=== PATIENT | male | born 2000 | race Caucasian/White ===

== ENCOUNTER 2021-02-10 05:15 | Emergency (ER) | payer OTHER ==
[~2021-02-10] VITALS: Ht 177.8 cm; Wt 75.9 kg
--- NOTE | 2021-02-10 05:23 | PHYS DOC ---
Adult General Chief Complaint Chief Complaint: NAUSEA/VOMITING/DIARRHEA HPI HPI Patient is a 20yo healthy male complaining of n/v/d. Onset was evening prior. Patient reports experienced similar symptoms that have since resolved. He developed nausea and has had ~12 episodes of non-bloody non-bilious emesis and ~12 episodes of looser stools than usual. No sick contacts or recent travel but admits reheating frozen chicken using an air fryer the day prior. No fever, chills, dizziness, CP, SHOB, dysuria. 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 See HPI for pertinent positives and negative responses, other jennings all other systems are negative, non-pertinent or non-contributory (HASEEB SAUCEDA DO) Physical Exam Physical Exam Constitutional: Well developed, well nourished, no acute distress, non-toxic appearance. HENT: Normocephalic, atraumatic, bilateral external ears normal, oropharynx moist, no oral exudates, nose normal. Eyes: PERRLA, EOMI, conjunctiva normal, no discharge. Neck: Normal range of motion, no tenderness, supple, no stridor. Cardiovascular: Heart rate regular, sinus rhythm, no murmurs rubs or gallops Lungs & Thorax: Bilateral breath sounds clear to auscultation Abdomen: Bowel sounds normal, soft, no tenderness, no masses, no pulsatile masses. Nonsurgical abdomen, no peritoneal signs Skin: Warm, dry, no erythema, no rash. Back: No tenderness, no CVA tenderness. Extremities: No tenderness, no cyanosis, no clubbing, ROM intact, no edema. Neurologic: Alert and oriented X 3, grossly normal motor & sensory function, no focal deficits noted. Psychologic: Affect normal, judgement normal, mood normal. (HASEEB SAUCEDA DO) Current Patient Data Vital Signs Vital Signs Date Time Temp Pulse Resp B/P (MAP) Pulse Ox O2 Delivery O2 Flow Rate FiO2 02/10/21 05:37 97.2 125 18 117/74 (88) 99 Room Air Vital Signs Date Time Temp Pulse Resp B/P (MAP) Pulse Ox O2 Delivery O2 Flow Rate FiO2 02/10/21 06:41 94 18 123/94 (104) 98 Room Air 02/10/21 05:37 97.2 (HASEEB SAUCEDA DO) EKG EKG EKG ordered and interpreted by myself at 0544 hrs. as sinus rhythm at 116 bpm, unremarkable intervals, no axis deviation, no acute ischemic findings, no STEMI (HASEEB SAUCEDA DO) Radiology/Procedures Radiology/Procedures [] (HASEEB SAUCEDA DO) Heart Score C/O Chest Pain: No Risk Factors: Risk Factors: DM, Current or recent (<one month) smoker, HTN, HLP, family history of CAD, obesity. Risk Scores: Risk Factors: DM, Current or recent (<one month) smoker, HTN, HLP, family history of CAD, obesity. (HASEEB SAUCEDA DO) C/O Chest Pain: No (JANET BALLARD DO) Course & Med Decision Making Course & Med Decision Making Tachycardic otherwise hemodynamically stable. HPI and PE consistent for dehydration 2/2 likely enteritis. ED workup started and 4mg Zofran and 1L IV NS administered Comprehensive sign out given to oncoming physician at time of my shift's end. Please defer to Dr. Ballard' notes for more detail (HASEEB SAUCEDA DO) Course & Med Decision Making 20-year-old male presents to the ED with sudden onset nausea, nonbloody nonbilious vomiting and loose watery diarrhea within 24 hours of his girlfriend who he lives with had similar symptoms, suspect viral process > infectious bacterial diarrhea (no recent abx) vs surgical abdomen, etc. Patient states he had old frozen chicken from [employer] that he air fried, symptoms started shortly after. No associated abdominal pain, fever, back pain, urinary complaints, bloody stools or bloody emesis. Patient presented with tachycardia -improved with 1 L NS bolus, heart rate in the 80s. Labs with no electrolyte abnormality, normal lipase, negative alcohol. Patient well-appearing with no further nausea and requests to go home. Patient reports he has a history of gastritis but no formal GI evaluation. Will discharge home with strict ED return precautions were given for recurrent dehydration, abdominal or back pain or fever. Encouraged urgent outpatient follow-up with PMD and GI for definitive management of gastritis. Life-threatening processes were considered but are low suspicion at this time, given history, physical exam and ED workup. Pt was educated on all prescription medications and adverse effects. All patient's questions were answered and pt was stable at time of discharge. Life/limb-threatening differential includes but is not limited to, acute coronary syndrome/myocardial infarction, Boerhaave's, DKA, intracranial hemorrhage, ischemic bowel, meningitis, sepsis, surgical abdomen (AAA), toxidrome (drug over/overdose/carbon monoxide, etc), ovarian/testicular torsion, trauma, or infection/sepsis. I spoken with the patient and her caregivers. I explained the patient's condition, diagnoses and treatment plan based on the information available to me at this time. I have answered the patient and her caregiver's questions and addressed any concerns. The patient and her caregivers have a good understanding of patient's diagnosis, condition and treatment plan as can be expected at this point. Vital signs have been stable. Patient's condition is stable and appropriate for discharge from the emergency department. Patient will pursue further outpatient evaluation with primary care physician or other designated or consulting physician as outlined in the discharge instructions. The patient and/or caregivers are agreeable to this plan of care and follow-up instructions have been explained in detail. The patient and/or caregivers have received these instructions in written form and have expressed an understanding of the discharge instructions. The patient and/or caregivers are aware that any significant change of condition or worsening of symptoms should prompt immediate return to this or the closest emergency department or call to 911. (JANET BALLARD DO) Dragon Disclaimer Dragon Disclaimer This electronic medical record was generated, in whole or in part, using a voice recognition dictation system. (HASEEB SAUCEDA DO) Departure Departure: Impression: Primary Impression: Nausea, vomiting, and diarrhea Disposition: 01 DC HOME SELF CARE/HOMELESS Condition: IMPROVED Referrals: PCP,UNKNOWN (PCP) with your pcp in 3 days for re-evaluation OR FOLLOW UP WITH FAMILY MEDICINE: Family Medicine Address: [address] [place] [address], [address] [address] Patient Instructions: Nausea and Vomiting Additional Instructions: You were seen for nausea, vomit, and diarrhea. You most likely have a viral illness which should resolve in the next few days to a week. Please call your primary care physician first thing Friday morning to review your ER visit and discuss potential need for outpatient follow-up and repeat evaluation. You should return to the ED if you develop abdominal pain, fever > 100.3, black/bloody stools, black/bloody vomiting, cannot keep water down, or any other new or concerning symptoms. FOLLOW UP WITH GASTROENTEROLOGY: if symptoms persist/evaluation for gastritis [facility] Address: [address] [place] [id number] EMERGENCY DEPARTMENT GENERAL DISCHARGE INSTRUCTIONS Thank you for coming to [facility] (ED) today and trusting us with you care. We trust that you had a positivie experience in our Emergency Department. If you wish to speak to the department management, you may call the director at [phone]. YOUR FOLLOW UP INSTRUCTIONS ARE FOLLOWS: 1. Do you have a private Doctor? If you do not have a private doctor, please ask for a resource list of physicians or clinics that may be able to assist you with follow up care. 2. The Emergency Physician has interpreted your x-rays. The X-Ray specialist will also review them. If there is a change in the findings, you will be notified in 48 hours when at all possible. 3. A lab test or culture has been done, your results will be reviewed and you will be notified if you need a change in treatment. ADDITIONAL INSTRUCTIONS AND INFORMATION: 1. Your care today has been supervised by a physician who is specially trained in emergency care. Many problems require more than one evaluation for a complete diagnosis and treatment. We recommend that you schedule your follow up appointment as recommended to ensure complete treatment of you illness or injury. If you are unable to obtain follow up care and continue to have a problem, or if your condition worsens, we recommend that you return to the ED. 2. We are not able to safely determine your condition over the phone nor are we able to give sound medical advice over the phone. For these safety reasons, if you call for medical advice we will ask you to come to the ED for further evaluation. 3. If you have any questions regarding these discharge instructions please call the ED at [phone]. SAFETY INFORMATION: In the interest of safety, wellness, and injury prevention; we encourage you to wear your sealbelt, if you smoke; quite smoking, and we encourage family to use a protective helmet for bicycling and other sporting events that present an increased risk for head injury. IF YOUR SYMPTOMS WORSEN OR NEW SYMPTOMS DEVELOP, OR YOU HAVE CONCERNS ABOUT YOUR CONDITION; OR IF YOUR CONDITION WORSENS WHILE YOU ARE WAITING FOR YOUR FOLLOW UP APPOINTMENT; EITHER CONTACT YOUR PRIMARY CARE DOCTOR, THE PHYSICIAN WHOSE NAME AND NUMBER YOU WERE GIVEN, OR RETURN TO THE ED IMMEDIATELY. Scripts Ondansetron Hcl (ZOFRAN) 4 Mg Tablet 1 TAB PO PRN Q6-8HRS for NAUSEA, #15 TAB Prov: HASEEB SAUCEDA DO 02/10/21 HASEEB SAUCEDA DO Feb 10, 2021 05:23 JANET BALLARD DO Feb 10, 2021 07:03
--- NOTE | 2021-02-10 05:54 | EKG ---
[address] [address] Test Date: 2021-02-10 Test Time: 05:38:38 Pat Name: GISEL DELEON Department: Room: Gender: M Er Registrar: : [id number] Requested By: HASEEB SAUCEDA Order Number: [id number] Reading MD: Measurements Intervals [place] Rate: 116 P: 17 NH: 116 QRS: 76 QRSD: 84 T: 26 QT: 312 QTc: 439 Interpretive Statements SINUS TACHYCARDIA NO SPECIFIC ECG ABNORMALITIES RI6.02 No previous ECG available for comparison
[2021-02-10] MEDS ORDERED: ONDA4TAB7 PO (05:56)
[2021-02-10] MEDS ORDERED: IV NORMAL SALINE 1,000ML 1,000 ML IV ONE (06:00)
[2021-02-10] MEDS ORDERED: ONDANSETRON PF 4 MG/2 ML VIAL. IVP ONE (06:00)
[2021-02-10 06:37] LABS: CREATININE 1.2 mg/dL (0.7-1.3); POTASSIUM 4.6 mmol/L (3.5-5.1)
[2021-02-10 06:41] VITALS: BP 123/94
[2021-02-10 06:43] LABS: ALBUMIN 4.6 g/dL (3.4-5.0); ALBUMIN/GLOBULIN RATIO 1.2 (1.0-1.7); TOTAL BILIRUBIN 0.9 mg/dL (0.2-1.0); TOTAL PROTEIN 8.5 g/dL (6.4-8.2)
== END 2021-02-10 07:11 | disposition home or self-care (01) ==
LOC: ER 05:15
DX: R11.2 Nausea with vomiting, unspecified (principal); R19.7 Diarrhea, unspecified; E86.0 Dehydration
CPT/HCPCS: 36415; 80053; 83690; 93005; 96361; 96374; 99284; G0480; J2405; J7030